=== PATIENT | male | born 1980 | race Caucasian/White ===

== ENCOUNTER → 2017-06-06 | Outpatient (CLI) | payer OTHER | END | disposition home or self-care (01) | LOC: KCIC US 14:44 | DX: N50.89 Other specified disorders of the male genital organs (principal) | CPT/HCPCS: 76870 ==

== ENCOUNTER 2018-09-16 13:04 | Emergency (ER) | payer OTHER ==
[~2018-09-16] VITALS: Ht 188 cm; Wt 127.0 kg
[2018-09-16 13:24] VITALS: BP 125/78
[2018-09-16] MEDS ORDERED: HYDROcodone/APAP 5/325MG 1 TAB TABLET PO ONE (14:00)
[2018-09-16] MEDS ORDERED: LIDOCAINE 2% 20 ML VIAL. IJ ONE (14:00)
[2018-09-16] MEDS ORDERED: NEOMY/BACITR/POLYMYXIN OINT PACKET. TP ONE (14:30)
[2018-09-16] MEDS ORDERED: DIPHTH,PERTUSS(ACELL),TET TOX 0.5 ML DISP.SYRIN. VAX IM ONE (14:30)
[2018-09-16] MEDS ORDERED: HYDR-3164 PO (15:02)
[2018-09-16] MEDS ORDERED: CEPH500C PO (15:02)
--- NOTE | 2018-09-16 15:03 | PHYS DOC ---
Past Medical History Past Medical History: Other Additional Past Medical Histor: ulcerative colitis Past Surgical History: Other Additional Past Surgical Histo: ankle Alcohol Use: Occasionally Drug Use: None Adult General Chief Complaint Chief Complaint: HAND PROBLEM HPI HPI Patient is a 38 year old male who presents with a fish hook stuck in his right hand and third digit. The patient states that he was at the [employer] fishing with his children when the fish hook caught his dogs lip. In the struggle to get the fish hook out of the dog got impaled in his hand. It is a barbed hook. He is unsure of his tetanus status. Review of Systems Review of Systems Constitutional: Denies fever or chills [] Respiratory: Denies cough or shortness of breath [] Cardiovascular: No additional information not addressed in HPI [] Integument: See history of present illness Neurologic: Denies headache, focal weakness or sensory changes [] Endocrine: Denies polyuria or polydipsia [] All other systems were reviewed and found to be within normal limits, except as documented in this note. Current Medications Current Medications Current Medications Medications (Trade) Dose Ordered Sig/Jade Start Time Stop Time Status Last Admin Dose Admin Acetaminophen/ Hydrocodone Bitart (Lortab 5/325) 2 tab 1X ONCE 09/16/18 14:00 09/16/18 14:01 DC 09/16/18 13:43 2 TAB Diphtheria/ Tetanus/Acell Pertussis (Boostrix) 0.5 ml ONCE ONCE 09/16/18 14:30 09/16/18 14:31 DC 09/16/18 14:51 0.5 ML Lidocaine HCl 20 ml 1X ONCE 09/16/18 14:00 09/16/18 14:01 DC 09/16/18 13:43 20 ML Neomycin/ Polymyxin/ Bacitracin (Triple Antibiotic Ointment) 1 pkt 1X ONCE 09/16/18 14:30 09/16/18 14:31 DC 09/16/18 14:51 1 PKT Allergies Allergies Allergies Coded Allergies Type Severity Reaction Last Updated Verified penicillin Allergy Intermediate 09/10/14 No Physical Exam Physical Exam Constitutional: Well developed, well nourished, no acute distress, non-toxic appearance. [] Cardiovascular:Heart rate regular rhythm, no murmur [] Lungs & Thorax: Bilateral breath sounds clear to auscultation [] Skin: There is a fishhook embedded in the palmar surface of the right hand as well as the third finger of the right hand with all 3 barbs embedded Neurologic: Alert and oriented X 3, normal motor function, normal sensory function, no focal deficits noted. [] Psychologic: Affect normal, judgement normal, mood normal. [] Current Patient Data Vital Signs Vital Signs Date Time Temp Pulse Resp B/P (MAP) Pulse Ox O2 Delivery O2 Flow Rate FiO2 09/16/18 13:43 16 98 Room Air 09/16/18 13:24 98.6 95 125/78 (94) 98.6 EKG EKG [] Radiology/Procedures Radiology/Procedures The patient's skin was prepped with Betadine. A digital block was placed in the third digit of the right hand and lidocaine was instilled around the jaylen in the palmar surface of the right hand. The barbs were clipped using wire cutters. A scalpel was used to make a small incision to free up the jaylen and the hooks were removed using forceps. The patient was given a tetanus booster. The wounds were then covered with Band-Aids. The patient tolerated the procedure well. Course & Med Decision Making Course & Med Decision Making Pertinent Labs and Imaging studies reviewed. (See chart for details) [] Dragon Disclaimer Dragon Disclaimer This electronic medical record was generated, in whole or in part, using a voice recognition dictation system. Departure Departure Impression: Primary Impression: [place] injury to finger Additional Impression: Need for tetanus booster Disposition: 01 HOME, SELF-CARE Condition: STABLE Referrals: CHRIS JENNINGS MD (PCP) Patient Instructions: Fingertip Laceration Additional Instructions: Take the medication as directed. Do not drive or operate heavy machinery while taking pain medication. Keep the wounds clean and dry. Follow-up with your primary care provider in 3 days for recheck or return to the emergency departmen t if worsening. Scripts Cephalexin (CEPHALEXIN) 500 Mg Capsule 1 CAP PO TID for laceration, #30 CAP Prov: MAYRA ALFRED APRN 09/16/18 Hydrocodone/Apap 5-325 (NORCO 5-325 TABLET) 1 Each Tablet 1 TAB PO PRN Q6HRS PRN for PAIN, #10 TAB 0 Refills Prov: MAYRA ALFRED APRN 09/16/18 Problem Qualifiers MAYRA ALFRED APRN Sep 16, 2018 15:03
== END 2018-09-16 15:14 | disposition home or self-care (01) ==
LOC: ER 13:04
DX: S60.452A Superficial foreign body of right middle finger, initial encounter (principal); Z88.0 Allergy status to penicillin; W45.8XXA Other foreign body or object entering through skin, initial encounter; Y93.89 Activity, other specified; Y92.89 Other specified places as the place of occurrence of the external cause; Y99.8 Other external cause status
CPT/HCPCS: 10120; 90471; 90715; 99284; J2001